=== PATIENT | female | born 1950 | race Caucasian/White ===

== ENCOUNTER → 2017-08-16 | Day surgery (SDC) | payer MEDICARE, BC ==
[2017-08-10 15:12] LABS: BASOPHILS % 0.4 % (0.0-1.0); EOSINOPHILS # (AUTO) 0.2 (0.0-0.4); EOSINOPHILS % 3.1 % (0.0-6.0); HEMATOCRIT 42.1 % (34.2-44.1); HEMOGLOBIN 14.8 g/dL (12.0-16.0); LYMPHOCYTES # (AUTO) 1.5 (1.0-3.2); LYMPHOCYTES % 28.5 % (18.0-39.1); MEAN CORPUSCULAR HGB CONC 35.2 g/dL (31-35); MEAN CORPUSCULAR VOLUME 96.8 fL (81-99); MONOCYTES # (AUTO) 0.5 (0.2-0.8); MONOCYTES % 9.6 % (4.4-11.3); NEUTROPHILS # (AUTO) 3.2 (2.1-6.9); NEUTROPHILS % 58.2 % (38.7-80.0); PLATELET COUNT 173 x10e3/uL (140-360); RED BLOOD COUNT 4.35 x10e6/uL (3.6-5.1); RED CELL DISTRIBUTION WIDTH 13.2 % (11.7-14.4)
[~2017-08-16] MED LIST: ASPERCREME TOP; FENTANYL CITRATE/PF 100MCG/2 ML INJ ONE; FISH OIL PO; HYOSCYAMINE SULFATE 0.5 MG/ML AMP ONE; LASIX20 MG PO; LIDOCAINE HCL 2% LOCAL INJ 5 ML SDV VIAL INJ ONE; LIPITOR20 MG PO; LOTREL 5-40 MG1 EACH PO; MIDAZOLAM HCL 2 MG/2 ML VIAL ONE; PANTOPRAZOLE 40 MG 10ML VIAL ONE; PROPOFOL IV EMULSION 10 MG/ML 50 ML VIAL ONE; VITAMIN D1000 UNI1 PO
--- NOTE | 2017-08-16 15:26 | Operative Report ---
DATE OF PROCEDURE: August 16, 2017 REFERRING PHYSICIAN: Shawanda Dimas MD PROCEDURES PERFORMED 1. Esophagogastroduodenoscopy with esophageal dilatation and biopsies. 2. Colonoscopy with an esophagogastroduodenoscope to 100 cm from the anal verge. INDICATIONS FOR EGD: Dysphagia to solids, heartburn and indigestion. INDICATIONS FOR COLONOSCOPY: Colorectal cancer screening. Personal history of colon polyps. MEDICATION: Patient was done under MAC. Please see anesthesiologist's note. PROCEDURE: With the patient in the left lateral decubitus position, the flexible fiberoptic Olympus gastroscope was introduced into the esophagus under direct visualization without any difficulty. There was some patchy erythema in the distal esophagus. There was a mild stricture noted at the GE junction that was dilated size 52-Kosovan Trejo and biopsied. Mucosa overlying the antrum and the body revealed some patchy erythema and moderate edema, and biopsies were obtained and sent to stain for H. pylori. Pylorus appeared to be of normal contour and shape. It was intubated with ease, and the scope was advanced all the way to the 2nd portion of the duodenum. The scope was then withdrawn slowly. Mucosa overlying the proximal 2nd portion and the duodenal bulb appeared to be within normal limits. The scope was then withdrawn back into the stomach and retroflexed. The mucosa overlying the fundus and cardia appeared to be within normal limits. The scope was then straightened out. It was subsequently withdrawn. Patient tolerated the procedure well. IMPRESSION 1. Distal esophagitis. 2. Esophageal stricture at gastroesophageal junction dilated to size 52-Kosovan Trejo and biopsied. 3. Gastritis, biopsied. Biopsies sent to stain for H. pylori. PLAN: Follow up histology. Initiate Protonix 40 mg 1 p.o. q.a.m. a.c. The patient was then turned around. After adequate lubrication of the anal canal, the flexible fiberoptic Olympus colonoscope was inserted into the rectum and advanced to the distal sigmoid colon. It could not be advanced any further as the sigmoid colon was sharply angulated and fixed. It was subsequently withdrawn. An attempt also failed with the pediatric colonoscope. The EGD scope was then introduced into the rectum and advanced with minimal difficulty all the way to approximately 100 cm from the anal verge, which corresponded probably to approximately the mid transverse colon. It was then withdrawn slowly, and the mucosa overlying the transverse, descending and sigmoid revealed scattered diverticular disease, which was more prominent in the sigmoid colon. One polyp in the proximal rectum was hot biopsied. The scope was then retroflexed into the distal rectum, and small internal hemorrhoids were noted, none of which was actively bleeding. The scope was then straightened out. It was subsequently withdrawn. Patient tolerated the procedure well. IMPRESSION 1. Sigmoid colon sharply angulated and fixed, could not be negotiated with the adult as well as the pediatric colonoscope. An esophagogastroduodenoscope was advanced to approximately 100 cm from the anal verge. 2. Diverticulosis. 3. Rectal polyp, hot biopsied. 4. Internal hemorrhoids, none actively bleeding. PLAN: Follow up histology. Patient will need electively an air contrast barium enema to visualize the rest of the colon. The timing of the followup colonoscopy is pending pathology as well as the air contrast barium enema report. Job#: [id number] cc:SHAWANDA DIMAS MD
== END | disposition home or self-care (01) ==
LOC: OR 11:20
PROVIDERS: ATTEND Internal Medicine Gastroenterology
CPT/HCPCS: 36415; 43239; 43450; 45378; 45384; 85025; 88305; 88312; 93005; J1980; J2001; J2250

== ENCOUNTER → 2018-01-27 | Outpatient (CLI) | payer MEDICARE, BC ==
[~2018-01-27] MED LIST changes: -FENTANYL CITRATE/PF 100MCG/2 ML INJ ONE; -HYOSCYAMINE SULFATE 0.5 MG/ML AMP ONE; -LIDOCAINE HCL 2% LOCAL INJ 5 ML SDV VIAL INJ ONE; -MIDAZOLAM HCL 2 MG/2 ML VIAL ONE; -PANTOPRAZOLE 40 MG 10ML VIAL ONE; -PROPOFOL IV EMULSION 10 MG/ML 50 ML VIAL ONE
--- NOTE | 2018-01-27 09:01 | Diagnostic Imaging Report ---
PROCEDURE:US GALLBLADDER COMPARISON:None. INDICATIONS:GEN ABDO PAIN TECHNIQUE: Damon-scale and color doppler transverse and longitudinal images of the right upper quadrant of the abdomen were obtained. FINDINGS: Exam is somewhat limited by overlying bowel gas. Liver: Measures 15.8 cm in right mid-clavicular line. Increased echogenicity. No masses. Main portal vein: Measures 0.9 cm, Hepatopetal flow Gallbladder: No wall thickening, pericholecystic fluid, or stone. Common Bile Duct: 0.3 cm Sonographic Swan's sign: Negative Right kidney: Measures 11.3 cm. Normal echogenicity. No solid masses or hydronephrosis. Pancreas: Limited evaluation due to overlying bowel gas. Inferior vena cava: Patent Aorta: Visualized portions are unremarkable. Ascites: None in the right upper quadrant of the abdomen. CONCLUSION: Hepatic steatosis. No sonographic evidence of cholecystitis. Dictated by: PREETHI GRAVES M.D. on 01/27/2018 at 9:10 Electronically approved by: PREETHI GRAVES M.D. on 01/27/2018 at 9:10
--- NOTE | 2018-01-27 21:37 | Diagnostic Imaging Report ---
Hepatobiliary Scan with Gallbladder Ejection Fraction Clinical information: RUQ abdominal pain Technique: Following intravenous administration of 7.0 millicuries of Tc-99m mebrofenin, dynamic images of the abdomen in the anterior projection were obtained through 30 minutes. Sincalide (CCK analog) 2.0 micrograms was administered intravenously over 30 minutes with additional imaging for determination of gallbladder ejection fraction. Discussion: Perfusion of the liver is normal. Extraction of tracer by the liver parenchyma is normal. Tracer appears promptly within the biliary tract. The gallbladder begins to fill by 5 minutes post injection of tracer and fills adequately. Tracer is seen in the small bowel by 22 minutes. The gallbladder ejection fraction with sincalide is 20% (normal greater than 40%). Impression: 1. Filling of the gallbladder excludes acute cystic duct obstruction/acute cholecystitis. 2. The decreased gallbladder ejection fraction of 20% supports the clinical diagnosis of chronic cholecystitis/gallbladder dyskinesia. Signed by: Dr. Awa Martínez M.D. on 01/27/2018 9:33 PM
== END ==
LOC: US 07:42
PROVIDERS: ATTEND Internal Medicine Gastroenterology
DX: R10.84 Generalized abdominal pain (principal); K76.0 Fatty (change of) liver, not elsewhere classified
CPT/HCPCS: 76705; 78227; A9537

== ENCOUNTER → 2018-03-04 | Day surgery (SDC) | payer MEDICARE, BC ==
[2018-02-28 13:43] LABS: BASOPHILS % 0.3 % (0.0-1.0); EOSINOPHILS # (AUTO) 0.2 (0.0-0.4); EOSINOPHILS % 3.2 % (0.0-6.0); HEMATOCRIT 43.5 % (34.2-44.1); HEMOGLOBIN 15.2 g/dL (12.0-16.0); LYMPHOCYTES # (AUTO) 2.4 (1.0-3.2); LYMPHOCYTES % 39.8 % (18.0-39.1); MEAN CORPUSCULAR HEMOGLOBIN 35.7 pg (28-32); MEAN CORPUSCULAR HGB CONC 34.9 g/dL (31-35); MEAN CORPUSCULAR VOLUME 102.1 fL (81-99); MONOCYTES # (AUTO) 0.5 (0.2-0.8); MONOCYTES % 8.3 % (4.4-11.3); NEUTROPHILS # (AUTO) 2.9 (2.1-6.9); NEUTROPHILS % 48.1 % (38.7-80.0); PLATELET COUNT 204 x10e3/uL (140-360); RED BLOOD COUNT 4.26 x10e6/uL (3.6-5.1); RED CELL DISTRIBUTION WIDTH 13.3 % (11.7-14.4)
[2018-02-28 14:03] LABS: ALANINE AMINOTRANSFERASE 56 IU/L (0-55); ALBUMIN 4.3 g/dL (3.5-5.0); ALBUMIN/GLOBULIN RATIO 1.2 (0.8-2.0); ALKALINE PHOSPHATASE 88 IU/L (40-150); BLOOD UREA NITROGEN 8 mg/dL (7-26); BUN/CREATININE RATIO 10 (6-25); CARBON DIOXIDE 26 mmol/L (22-29); CHLORIDE 102 mmol/L (98-107); EST GLOMERULAR FILTRATION RATE > 60 ML/MIN (60-); GLUCOSE 111 mg/dL (74-118); SODIUM 143 mmol/L (136-145)
--- NOTE | 2018-02-28 14:25 | Diagnostic Imaging Report ---
EXAMINATION: PA and lateral views of the chest. COMPARISON: None CLINICAL HISTORY: Preoperative study for cholecystectomy DISCUSSION: Lines/tubes: None. Lungs: The lungs are well inflated and clear. There is no evidence of pneumonia or pulmonary edema. Pleura: There is no pleural effusion or pneumothorax. Heart and mediastinum: The cardiomediastinal silhouette is normal with the exception of atherosclerotic calcification of the thoracic aorta. Bones and soft tissues: No acute bony abnormalities. Degenerative changes in the thoracic spine IMPRESSION: No acute cardiopulmonary abnormalities. Signed by: Dr. Isaac Bello M.D. on 02/28/2018 2:22 PM
[2018-02-28 15:18] LABS: CLARITY,URINE CLEAR (CLEAR); COLOR,URINE YELLOW (YELLOW)
[2018-02-28 15:19] LABS: BILIRUBIN,URINE NEGATIVE (NEGATIVE); KETONES,URINE NEGATIVE (NEGATIVE); LEUKOCYTE ESTERASE ,URINE NEGATIVE (NEGATIVE); NITRITE,URINE NEGATIVE (NEGATIVE); PROTEIN,URINE DIPSTICK NEGATIVE (NEGATIVE); URINE UROBILINOGEN 0.2 mg/dL (0.2 - 1)
[~2018-03-04] MED LIST changes: +BUPIVACAINE 0.25%/EPI 30ML SDV INJ ONE; +DESFLURANE 240 ML BTL INH ONE; +DEXAMETHASONE SOD PHOS INJ 4 MG/ML VIAL ONE; +FENTANYL CITRATE/PF 100MCG/2 ML INJ ONE; +GLYCOPYRROLATE INJ 1MG/ 5 ML SYR ONE; +HYDROCODONE/APAP 7.5MG-325MG 1 EA TAB ONE; +LABETALOL HCL 5 MG/ML 20ML VIAL ONE; +LIDOCAINE HCL 2% LOCAL INJ 5 ML SDV VIAL INJ ONE; +MIDAZOLAM HCL 2 MG/2 ML VIAL ONE; +MORPHINE SULFATE INJ 4 MG/ML INJ ONE; +NEOSTIGMINE 5 MG/5ML SYR ONE; +ONDANSETRON HCL INJ 2 MG/ML VIAL ONE; +PROPOFOL IV EMULSION 10 MG/ML 20 ML VIAL ONE; +ROCURONIUM BROMIDE 10 MG/ML 5ML VIAL ONE
--- OUTSIDE RECORDS SUMMARY | 2018-03-04 11:05 | XMS REPORT ---
Author Author [facility] Address Unknown Phone Unavailable Care Team Providers Care Superintendent Transmission Name Role Phone Vahe WEN Unavailable Unavailable KATHRYN RANGEL Unavailable Unavailable Problems This patient has no known problems. Allergies, Adverse Reactions, Alerts This patient has no known allergies or adverse reactions. Medications This patient has no known medications. Results Test Description Test Time Test Comments Text Results Atomic Results Result Comments CHEST 2 VIEWS 2018-02-28 14:21:00 [place] [address] Patient Name: CARYN GARZA MR #: [id number] : 1950 Age/Sex: 67/F Req #: [id number] Adm Physician: Ordered by: KEMAR WEN MD Report #: [id number] Location: OR Room/Bed: Procedure: [id number] DX/CHEST 2 VIEWS Exam Date: 02/28/18 Exam Time: 1405 REPORT STATUS: Signed EXAMINATION: PA and lateral views of the chest. COMP ARISON: None CLINICAL HISTORY: Preoperative study for cholecystectomy DISCUSSION: Lines/tubes: None. Lungs: The lungs are well inflated and clear. There is no evidence of pneumonia or pulmonary edema. Pleura: There is no pleural effusion or pneumothorax. Heart and mediastinum: The cardiomediastinal silhouette is normal with the exception of atherosclerotic calcification of the thoracic aorta. Bones and soft tissues: No acute bony abnormalities. Degenerative changes in the thoracic spine IMPRESSION: No acute cardiopulmonary abnormalities. Signed by: Dr. Josefina Goodwin M.D. on 02/28/2018 2:22 PM Dictated By: JOSEFINA GOODWIN MD 21 Transcribed By: GENARO on 02/28/181421 COPY TO: KEMAR WEN MD HEPTOBILIARY W PHARM 2018-01-27 21:31:00 [place] [address] Patient Name: CARYN GARZA MR #: [id number] : 1950 Age/Sex: 67/F Req #: [id number] Adm Physician: Ordered by: KATHRYN RANGEL MD Report #: [id number] Location: Room/Bed: Procedure: [id number] NM/HEPTOBILIARY W PHARM Exam Date: 01/27/18 Exam Time: 0900 REPORT STATUS: Signed Hepatobiliary Scan with Gallbladder Ejection Fraction Clinical information: RUQ abdominal pain Technique: Following intravenous administration of 7.0 millicuries of Tc-99m mebrofenin, dynamic images of the abdomen in the anterior projection were obtained through 30 minutes. Sincalide (CCK analog) 2.0 micrograms was administered intravenously over 30 minutes with additional imaging for determination of gallbladder ejection fraction. Discussion: Perfusion of the liver is normal. Extraction of tracer by the liver parenchyma is normal. Tracer appears promptly within the biliary tract. The gallbladder begins to fill by 5 misael shivam post injection of tracer and fills adequately. Tracer is seen in the small bowel by 22 minutes. The gallbladder ejection fraction with sincalide is 20% (normal greater than 40%). Impression: 1. Filling of the gallbladder excludes acute cystic duct obstruction/acute cholecystitis. 2. The decreased gallbladder ejection fraction of 20% supports the clinical diagnosis of chronic cholecystitis/gallbladder dyskinesia. Signed by: Dr. Thien Martínez M.D. on 01/27/2018 9:33 PM Dictated By: THIEN MARTÍNEZ MD 32 Transcribed By: GENARO on 01/27/182132 COPY TO: KATHRYN RANGEL MD US GALLBLADDER 2018-01-27 09:10:00 [place] [address] Patient Name: CARYN GARZA MR #: [id number] : 1950 Age/Sex: 67/F Req #: [id number] Adm Physician: Ordered by: KATHRYN RAGNEL MD Report #: [id number] Location: Room/Bed: Procedure: [id number] US/US GALLBLADDER Exam Date: 01/27/18 Exam Time: 0809 REPORT STATUS: Signed PROCEDURE: US GALLBLADDER COMPARISON: None. INDICATION S: GEN ABDO PAIN TECHNIQUE: Damon-scale and color doppler transverse and longitudinal images of the right upper quadrant of the abdomen were obtained. FINDINGS: Exam is somewhat limited by overlying bowel gas. Liver: Measures 15.8 cm in right mid-clavicular line. Increased echogenicity. No masses. Main portal vein: Measures 0.9 cm, Hepatopetal flow Gallbladder: No wall thickening, pericholecystic fluid, or stone. Common Bile Duct: 0.3 cm Sonographic Swan's sign: Negative Right kidney: Measures 11.3 cm. Normal echogenicity. No solid masses or hydronephrosis. Pancreas: Limited evaluation due to overlying bowel gas. Inferior vena cava: Patent Aorta: Visualized portions are unremarkable. Ascites: None in the right upper quadrant of the abdomen. CONCLUSION: Hepatic steatosis. No sonographic evidence of cholecystitis. Dictated by: PREETHI GRAVES M.D. on 01/27/2018 at 9:10 Electronically approved by: PREETHI GRAVES M.D. on 01/27/2018 at 9:10 Dictated By: PREETHI GRAVES MD 9 Transcribed By: AMBROSE on 01/27/18909 COPY TO: KATHRYN RANGEL MD
--- NOTE | 2018-03-04 16:13 | Operative Report ---
DATE OF PROCEDURE: March 04, 2018 PREOPERATIVE DIAGNOSIS: Biliary dyskinesia. POSTOPERATIVE DIAGNOSES 1. Biliary dyskinesia. 2. Liver cirrhosis. OPERATIONS PERFORMED 1. Laparoscopic cholecystectomy. 2. Wedge biopsy of the right lobe of the liver. OPERATIONS SUPPORT ANALYST: Dr. Saji Alejo and Anton CHRISTIANSEN. ANESTHESIA: General. COMPLICATIONS: None. ESTIMATED BLOOD LOSS: Minimal. DESCRIPTION OF PROCEDURE: With the patient lying in bed in the supine position under good general endotracheal anesthesia, the abdomen was prepped with Betadine solution and draped in the usual manner. A Veress needle was introduced into the umbilicus, and pneumoperitoneum was established without any difficulty. An 11 mm trocar was placed into the umbilicus, and a 10 mm video laparoscope was placed into the intraabdominal cavity. Under direct vision, three 5 mm trocars were placed in the right subcostal region. Video laparoscopy at this point revealed a grossly abnormal liver consistent with either very severe fatty infiltration of the liver or more than likely early cirrhotic changes. The rest of the abdominal exploration was within normal limits other than the gallbladder that had some adhesions. The adhesions to the gallbladder were then slowly and carefully taken down. The peritoneum overlying the neck of the gallbladder was then opened, and the cystic duct was identified. The cystic duct was followed to its junction with the common duct. The cystic duct was then circumferentially dissected away from the common duct, doubly clipped and divided. The cystic artery was similarly doubly clipped and divided. The gallbladder was then slowly and carefully taken off of the liver bed using the cautery scissors, and perfect hemostasis was ascertained. The gallbladder was grasped through the umbilical port and removed without any difficulty. Video laparoscopy was then again carried out. The liver bed was found to be perfectly dry. A wedge biopsy of the right lobe of the liver was then taken and sent for pathological examination. Hemostasis of the biopsy site was ascertained with the cautery, and a Surgicel was left in to cover the biopsy site as well as the liver bed. All of the excess fluid was aspirated. The pneumoperitoneum was evacuated, and all the trocars were removed under direct vision. The midline fascia at the umbilicus was then closed with a [id number] of 0 Vicryl. All layers were infiltrated on the way out with solution of 1/4 percent Marcaine. Subcutaneous tissue was approximated with 3-0 Vicryl, and the skin was closed with subcuticular 5-0 Vicryl. Benzoin, Steri-Strips and Band-Aids were applied. The sponge, lap and needle count was correct. The patient tolerated the procedure well and returned to the recovery room in stable condition. Job#: [id number] EV
[2018-03-04 17:10] VITALS: BP 151/68
== END | disposition home or self-care (01) ==
LOC: OR 10:57
PROVIDERS: ATTEND Surgery
DX: K80.10 Calculus of gallbladder with chronic cholecystitis without obstruction (principal); K74.60 Unspecified cirrhosis of liver; K82.8 Other specified diseases of gallbladder; I10 Essential (primary) hypertension; E66.01 Morbid (severe) obesity due to excess calories; K21.9 Gastro-esophageal reflux disease without esophagitis; Z01.810 Encounter for preprocedural cardiovascular examination; Z01.812 Encounter for preprocedural laboratory examination; Z01.818 Encounter for other preprocedural examination; Z87.891 Personal history of nicotine dependence; Z87.01 Personal history of pneumonia (recurrent)
CPT/HCPCS: 36415; 47379; 47562; 71046; 80053; 81003; 85025; 88304; 88307; 88313; 93005; C1766; J1100; J2001; J2250; J2270; J2405; J2704; J3490 ×2

== ENCOUNTER → 2019-11-17 | Outpatient (CLI) | payer MEDICARE, BC ==
[~2019-11-17] MED LIST changes: -BUPIVACAINE 0.25%/EPI 30ML SDV INJ ONE; -DESFLURANE 240 ML BTL INH ONE; -DEXAMETHASONE SOD PHOS INJ 4 MG/ML VIAL ONE; -FENTANYL CITRATE/PF 100MCG/2 ML INJ ONE; -GLYCOPYRROLATE INJ 1MG/ 5 ML SYR ONE; -HYDROCODONE/APAP 7.5MG-325MG 1 EA TAB ONE; -LABETALOL HCL 5 MG/ML 20ML VIAL ONE; -LIDOCAINE HCL 2% LOCAL INJ 5 ML SDV VIAL INJ ONE; -MIDAZOLAM HCL 2 MG/2 ML VIAL ONE; -MORPHINE SULFATE INJ 4 MG/ML INJ ONE; -NEOSTIGMINE 5 MG/5ML SYR ONE; -ONDANSETRON HCL INJ 2 MG/ML VIAL ONE; -PROPOFOL IV EMULSION 10 MG/ML 20 ML VIAL ONE; -ROCURONIUM BROMIDE 10 MG/ML 5ML VIAL ONE
--- NOTE | 2019-11-17 17:00 | Diagnostic Imaging Report ---
TECHNIQUE: Magnetic resonance imaging of the RIGHT KNEE was performed WITHOUT injected contrast. HISTORY: Knee pain, bucket-handle tear of lateral meniscus COMPARISON: None available. FINDINGS: LIGAMENTS AND TENDONS: ACL: Intact PCL: Intact with mild intrasubstance degeneration. Collateral ligaments: Medial collateral ligament remains intact however thickening at the femoral attachment site without edema, may represent sequela of remote injury. Lateral collateral ligament is intact and unremarkable. Iliotibial band: Unremarkable Popliteal tendon: Intact Extensor mechanism: Intact JOINT: Menisci: Medial: Complex tear at the posterior horn of the medial meniscus with involvement of the posterior root attachment. Associated extrusion of the meniscal body. Lateral: Intact Articular Cartilage: Medial Compartment: Diffuse full-thickness cartilage loss along the medial femoral condyle and medial tibial plateau. Lateral Compartment: Low-grade cartilage thinning without focal full-thickness defect. Patellofemoral Compartment: Diffuse intermediate grade cartilage loss with scattered areas of high-grade fissuring. Tricompartmental small marginal osteophytes. Joint Fluid: Trace joint effusion with synovitis. Few T1/T2 hypointense loose bodies within the posterior joint recess along the anterior aspect of the lateral femoral condyle, largest measures up to 10 mm. Additional possible smaller loose bodies within the suprapatellar recess. BONE: No fracture or acute osseous abnormality. No infiltrative bone marrow replacing abnormality. Subtle focus of subchondral edema along the medial femoral condyle, likely related to overlying cartilage degeneration. SOFT TISSUES: Otherwise, unremarkable. IMPRESSION: 1. Complex tear at the posterior horn of the medial meniscus with involvement of the posterior root attachment. Associated severe medial compartment degenerative changes with marginal osteophytes and diffuse full-thickness cartilage loss. 2. Additional cartilage degeneration is moderate in the patellofemoral compartment and mild in the lateral compartment. 3. Trace joint effusion with few hypointense loose bodies, most notably in the posterior joint recess measuring up to 10 mm. Signed by: Jarocho Ramirez MD on 11/17/2019 4:57 PM
== END ==
LOC: MRI 14:32
PROVIDERS: ATTEND Specialist
DX: S83.251A Bucket-handle tear of lateral meniscus, current injury, right knee, initial encounter (principal); M17.11 Unilateral primary osteoarthritis, right knee

== ENCOUNTER → 2020-01-10 | Day surgery (SDC) | payer MEDICARE, BC, OTHER ==
--- NOTE | 2020-01-05 14:09 | Diagnostic Imaging Report ---
EXAMINATION: CHEST 2 VIEWS INDICATION: Pre-operative COMPARISON: None FINDINGS: LINES/TUBES:None LUNGS:The lungs are well-inflated. No focal consolidation or pulmonary edema. PLEURA:No pleural effusion or pneumothorax. MEDIASTINUM:The cardiomediastinal silhouette appears normal in size and shape. BONES/SOFT TISSUES:No acute osseous injury. ABDOMEN:No free air under the diaphragm. IMPRESSION: No focal pneumonia or pulmonary edema. Signed by: Alex Guidry MD on 01/05/2020 2:06 PM
[2020-01-05 14:16] LABS: BASOPHILS % 0.4 % (0.0-1.0); EOSINOPHILS # (AUTO) 0.2 (0.0-0.4); EOSINOPHILS % 2.4 % (0.0-6.0); HEMATOCRIT 42.8 % (34.2-44.1); HEMOGLOBIN 14.3 g/dL (12.0-16.0); LYMPHOCYTES # (AUTO) 2.5 (1.0-3.2); LYMPHOCYTES % 33.7 % (18.0-39.1); MEAN CORPUSCULAR HEMOGLOBIN 30.2 pg (28-32); MEAN CORPUSCULAR HGB CONC 33.4 g/dL (31-35); MEAN CORPUSCULAR VOLUME 90.5 fL (81-99); MONOCYTES # (AUTO) 0.6 (0.2-0.8); MONOCYTES % 8.4 % (4.4-11.3); NEUTROPHILS # (AUTO) 4.1 (2.1-6.9); PLATELET COUNT 251 x10e3/uL (140-360); RED BLOOD COUNT 4.73 x10e6/uL (3.6-5.1)
[2020-01-05 14:28] LABS: ANION GAP 16.2 mmol/L (8-16); CALCIUM 9.8 mg/dL (8.4-10.2); CREATININE, SERUM 1.04 mg/dL (0.57-1.11); POTASSIUM 4.2 mmol/L (3.5-5.1)
[~2020-01-10] MED LIST changes: +BUPIVACAINE HCL 0.5% INJ 30 ML VIAL INJ ONE; +CEFAZOLIN SOD 1 GM/NS 50ML 100 ML IV ONE; +DEXAMETHASONE SOD PHOS INJ 4 MG/ML VIAL ONE; +FENTANYL CITRATE/PF 100MCG/2 ML INJ ONE; +LIDOCAINE HCL 2% LOCAL INJ 5 ML SDV VIAL INJ ONE; +MIDAZOLAM HCL 2 MG/2 ML VIAL ONE; +ONDANSETRON HCL INJ 2MG/ML 2ML 2 MG/ML VIAL ONE; +PANTOPRAZOLE SO40 MG PO; +PROPOFOL IV EMULSION 10 MG/ML 20 ML VIAL ONE; +SEVOFLURANE INHAL SOLN 250 ML PEN BTL ONE
[2020-01-10 12:55] VITALS: BP 144/76
--- NOTE | 2020-01-19 10:40 | Operative Report ---
DATE OF PROCEDURE: 01/10/2020 SURGEON: Jonnie Sanders MD PREOPERATIVE DIAGNOSES: Right knee medial meniscus tear, right knee degenerative joint disease knee. POSTOPERATIVE DIAGNOSES: Right knee medial meniscus tear, right knee degenerative joint disease intra-articular loose body. OPERATIONS AND PROCEDURE PERFORMED: The patient underwent a right knee examination under anesthesia, right knee arthroscopy, right knee partial medial meniscectomy, right knee chondroplasty of the patella, trochlea, medial femoral condyle, the medial tibial plateau, lateral femoral condyle and lateral tibial plateau as well as removal of a large intra-articular loose body from the posterior medial compartment of the knee. 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 ANESTHESIA: General endotracheal intubation anesthesia. IV FLUIDS: Per the anesthesia record. BRIEF DESCRIPTION OF THE PATIENT'S OPERATIVE PROCEDURE: Ms. Sarah was taken to the operating room and placed in supine position on the operating table. Following induction of general anesthesia as well as endotracheal intubation, the patient's right lower extremity was examined under anesthesia. She was found to have a mild effusion within the knee joint, but otherwise ligamentously stable knee. The patient's lower extremities were prepped and draped in surgical fashion. A two-port technique was used to provide this patient arthroscopic evaluation of the knee joint. Examination of suprapatellar pouch, medial lateral gutters found no evidence of loose bodies. There was however evidence of chondromalacia of the patellar and trochlear surfaces. The scope was advanced to the medial compartment. Examination of the medial compartment demonstrated chondromalacia of the articulating surfaces. There was also a torn medial meniscus. A combination of biting forceps and a motorized shaver used to resect the torn portion of meniscus and a chondroplasty of the medial femoral condyle and medial tibial plateau were performed at this time. As the meniscus was resected, a large loose body was identified in the posterior aspect of the medial compartment. A combination of a grasper and a biter were used to resect this loose body. The scope was then advanced to the intercondylar notch and the anterior cruciate ligament was identified and found to be intact. Scope was advanced to the lateral compartment and chondromalacia of the articulating surfaces were encountered. A chondroplasty of the lateral femoral condyle and lateral tibial plateau were performed at this time. The scope was then advanced to suprapatellar pouch and chondroplasty of the patella and trochlea were performed. The knee was then deflated with sterile normal saline. The portal sites were closed using 4-0 nylon suture. The portal sites as well as knee itself were injected 0.5% Marcaine with epinephrine. Sterile dressings were applied. The patient was then awakened and taken to the postanesthesia care unit in stable condition. MD TAMMIE Medel/RUFUS /[id number]
== END | disposition home or self-care (01) ==
LOC: OR 07:25
PROVIDERS: ATTEND Specialist
DX: S83.221A Peripheral tear of medial meniscus, current injury, right knee, initial encounter (principal); M17.11 Unilateral primary osteoarthritis, right knee; M22.41 Chondromalacia patellae, right knee; M23.41 Loose body in knee, right knee; I10 Essential (primary) hypertension; K74.60 Unspecified cirrhosis of liver; K21.9 Gastro-esophageal reflux disease without esophagitis; M10.9 Gout, unspecified; F41.9 Anxiety disorder, unspecified; X58.XXXA Exposure to other specified factors, initial encounter; Z01.810 Encounter for preprocedural cardiovascular examination; Z01.812 Encounter for preprocedural laboratory examination; Z01.818 Encounter for other preprocedural examination; Z11.59 Encounter for screening for other viral diseases; Z68.32 Body mass index [BMI] 32.0-32.9, adult; Z87.01 Personal history of pneumonia (recurrent); Z87.891 Personal history of nicotine dependence
CPT/HCPCS: 29881; 36415; 71046; 80048; 85025; 93005; J0690; J1100; J2001; J2250; J2405; J2704; J3010; U0002

== ENCOUNTER 2020-02-19 08:00 | Outpatient (RCR) | payer MEDICARE, BC ==
[~2020-02-19 08:00] MED LIST changes: -BUPIVACAINE HCL 0.5% INJ 30 ML VIAL INJ ONE; -CEFAZOLIN SOD 1 GM/NS 50ML 100 ML IV ONE; -DEXAMETHASONE SOD PHOS INJ 4 MG/ML VIAL ONE; -FENTANYL CITRATE/PF 100MCG/2 ML INJ ONE; -LIDOCAINE HCL 2% LOCAL INJ 5 ML SDV VIAL INJ ONE; -MIDAZOLAM HCL 2 MG/2 ML VIAL ONE; -ONDANSETRON HCL INJ 2MG/ML 2ML 2 MG/ML VIAL ONE; -PROPOFOL IV EMULSION 10 MG/ML 20 ML VIAL ONE; -SEVOFLURANE INHAL SOLN 250 ML PEN BTL ONE
== END 2020-02-26 ==
LOC: PT 08:00
PROVIDERS: ATTEND Specialist
DX: M17.11 Unilateral primary osteoarthritis, right knee (principal); M25.561 Pain in right knee; M25.661 Stiffness of right knee, not elsewhere classified; R26.2 Difficulty in walking, not elsewhere classified; M62.81 Muscle weakness (generalized)
CPT/HCPCS: 97139